=== PATIENT | female | born 1960 | race Two or more races ===

== ENCOUNTER 2017-06-02 04:44 | Emergency (ER) | payer MEDICARE ==
[~2017-06-02] VITALS: Ht 162.6 cm; Wt 97.1 kg
[2017-06-02] MEDS ORDERED: IV NS 0.9% 500 ML BAG IV ONE ×2 (05:00→06:00)
--- NOTE | 2017-06-02 05:09 | NUR ---
PT [facility]K WYNN FROM HOME PER PT "I WAS USING THE RESTROOM AND JUST FELL OFF, BUT I DID NOT HIT MY HEAD" NO C/O PAIN PT A/O X 4, BREATHING EVEN/UNLABORED, SKIN WARM/DRY/INTACT, PT STATES "I JUST FEEL DIZZY"
[2017-06-02 05:16] LABS: CALCIUM, SERUM 9.5 mg/dL (8.5-10.1); CARBON DIOXIDE 25 mmol/L (21-32); CHLORIDE 104 mmol/L (98-107); CREATININE 1.4 mg/dL (0.6-1.3); GLUCOSE 166 mg/dL (74-106); POTASSIUM 4.7 mmol/L (3.5-5.1); SODIUM SERUM 138 mmol/L (136-145); UREA NITROGEN, BLOOD 24 mg/dL (7-18)
[2017-06-02 05:21] LABS: BASOPHILS % (AUTO) 0.6 % (0.0-2.0); EOSINOPHILS # (AUTO) 0.4 /CMM (0.0-0.7); EOSINOPHILS % (AUTO) 6.4 % (0.0-6.0); HEMATOCRIT 38 % (33-45); HEMOGLOBIN 12.5 g/dL (11.5-14.8); LYMPHOCYTES # (AUTO) 1.5 /CMM (0.8-4.8); LYMPHOCYTES % (AUTO) 22.3 % (20.0-44.0); MEAN CORPUSCULAR HEMOGLOBIN 27 PG (26.0-33.0); MEAN CORPUSCULAR HGB CONC 33 g/dl (31.0-36.0); MEAN CORPUSCULAR VOLUME 83 fL (82-100); MONOCYTES # (AUTO) 0.4 /CMM (0.1-1.30); MONOCYTES % (AUTO) 6.4 % (2.0-12.0); NEUTROPHILS # (AUTO) 4.4 /CMM (1.8-8.9); NEUTROPHILS % (AUTO) 64.3 % (43.0-81.0); PLATELET COUNT (AUTO) 396 /CMM (150-450); RDW COEFFICIENT OF VARIATION 14.4 (11.5-15.0); RED BLOOD CELL COUNT(AUTO) 4.62 MIL/uL (4.0-5.2); WHITE BLOOD COUNT (AUTO) 6.8 K/uL (4.3-11.0)
[2017-06-02 05:22] LABS: ALANINE AMINOTRANSFERASE 11 U/L (12-78); ALBUMIN 3.5 g/dL (3.4-5.0); ALKALINE PHOSPHATASE 105 U/L (46-116); ASPARTATE AMINOTRANSFERASE 12 U/L (15-37); BILIRUBIN,DIRECT 0.1 mg/dL (0.0-0.2); BILIRUBIN,TOTAL 0.4 mg/dL (0.2-1.0); TOTAL PROTEIN, SERUM 7.8 g/dL (6.4-8.2)
[2017-06-02 05:24] LABS: TROPONIN I < 0.017 ng/mL (0.00-0.056)
--- NOTE | 2017-06-02 07:08 | NUR ---
PT SLEEPING, BREATHING LOUDLY, AROUSED EASILY TO VOICE, SYMMETRICAL CHEST RISE/FALL, NO C/O PAIN PT CALLING FRIEND FOR P/U
[2017-06-02 07:30] VITALS: BP 122/76
== END 2017-06-02 07:31 | disposition home or self-care (01) ==
LOC: ER 04:51
DX: E86.0 Dehydration (principal); E11.9 Type 2 diabetes mellitus without complications; G20 Parkinson's disease
CPT/HCPCS: 36415; 70450-TC; 71010-TC; 80048-TC; 80076-TC; 82962-TC; 84484-TC; 85025-TC; A4606; J7040; Z7610

== ENCOUNTER 2017-06-07 07:46 | Emergency (ER) | payer MEDICARE ==
[~2017-06-07] VITALS: Ht 154.9 cm; Wt 97.1 kg
--- NOTE | 2017-06-07 07:46 | NUR ---
BLE PAIN; STARTED LAST NIGHT, 04/17, ACHING-TICKLISH LIKE SENSATION. HX RLE DVT PER REPORT
[2017-06-07] MEDS ORDERED: IV NS 0.9% 500 ML BAG IV ONE (08:00)
[2017-06-07] MEDS ORDERED: MORPHINE SULFATE INJ 2 MG/ML DISP.SYRIN IV ONE (08:00)
[2017-06-07] MEDS ORDERED: ONDANSETRON HCL/PF 4 MG/2 ML VIAL IVP ONE (08:00)
[2017-06-07] MEDS ORDERED: ONDANSETRON HCL/PF 4 MG/2 ML VIAL ONE (08:03)
[2017-06-07] MEDS ORDERED: MORPHINE SULFATE INJ 10 MG/ML DISP.SYRIN ONE (08:04)
[2017-06-07 08:11] LABS: EOSINOPHILS # (AUTO) 0.3 /CMM (0.0-0.7); EOSINOPHILS % (AUTO) 5.9 % (0.0-6.0); HEMATOCRIT 36 % (33-45); HEMOGLOBIN 11.9 g/dL (11.5-14.8); LYMPHOCYTES # (AUTO) 1.1 /CMM (0.8-4.8); LYMPHOCYTES % (AUTO) 21.7 % (20.0-44.0); MEAN CORPUSCULAR HEMOGLOBIN 27 PG (26.0-33.0); MEAN CORPUSCULAR HGB CONC 33 g/dl (31.0-36.0); MEAN CORPUSCULAR VOLUME 82 fL (82-100); MONOCYTES # (AUTO) 0.3 /CMM (0.1-1.30); MONOCYTES % (AUTO) 5.9 % (2.0-12.0); NEUTROPHILS # (AUTO) 3.3 /CMM (1.8-8.9); NEUTROPHILS % (AUTO) 65.5 % (43.0-81.0); PLATELET COUNT (AUTO) 366 /CMM (150-450); RDW COEFFICIENT OF VARIATION 14.8 (11.5-15.0); RED BLOOD CELL COUNT(AUTO) 4.36 MIL/uL (4.0-5.2); WHITE BLOOD COUNT (AUTO) 5.1 K/uL (4.3-11.0)
--- NOTE | 2017-06-07 08:14 | NUR ---
LAC #20 IV ACCESS BLOOD SAMPLE COLLECTED SENT TO LAB
[2017-06-07 08:20] LABS: CALCIUM, SERUM 9.1 mg/dL (8.5-10.1); CREATININE 0.8 mg/dL (0.6-1.3); POTASSIUM 4.1 mmol/L (3.5-5.1)
--- NOTE | 2017-06-07 08:20 | NUR ---
SPLICER HELPER AT BEDSIDE
[2017-06-07 08:38] LABS: PROTHROMBIN TIME 59.6 SECS (9.5-12.7)
--- NOTE | 2017-06-07 08:39 | NUR ---
AIRPORT GUIDE AT BEDSIDE
[2017-06-07 08:40] LABS: INR 5.63 (0.87-1.13)
--- NOTE | 2017-06-07 09:53 | NUR ---
Patient discharged to home in stable condition. Written and verbal after care instructions given. Patient verbalizes understanding of instruction.
--- NOTE | 2017-06-07 09:53 | NUR ---
IV removed. Catheter intact and site benign. Pressure and 4x4 applied to site. No bleeding noted.
[2017-06-07 10:10] VITALS: BP 110/75
== END 2017-06-07 10:30 | disposition home or self-care (01) ==
LOC: ER 07:48
DX: M79.604 Pain in right leg (principal); M79.605 Pain in left leg; E11.40 Type 2 diabetes mellitus with diabetic neuropathy, unspecified; E66.01 Morbid (severe) obesity due to excess calories; G20 Parkinson's disease; R79.1 Abnormal coagulation profile; Z79.01 Long term (current) use of anticoagulants; Z86.718 Personal history of other venous thrombosis and embolism
CPT/HCPCS: 36415; 73590; 80048; 82550; 85025; 85730; 93970; 96374; 96375; 99285; A4606; J2270; J2405; J7040; Z7610

== ENCOUNTER 2017-06-09 00:18 | Emergency (ER) | payer MEDICARE ==
[~2017-06-09] VITALS: Ht 154.9 cm; Wt 97.5 kg
[2017-06-09] MEDS ORDERED: HYDROCODONE/APAP 5/325MG 1 EACH TABLET PO ONE (00:30)
--- NOTE | 2017-06-09 00:32 | NUR ---
PT BIBRA FROM HOME PT C/O NECK AND BACK PAIN S/P FALLING OFF BED. PT AOX3 RR EVEN AND UNLABORED. NO SOB NOTED. NAD NOTED. NO NVD. PT GOWNED AND PLACED ON MONITOR WAITING FOR MD DOTY. PT PLACED ON CERVICAL COLLAR PER MD ORDER.
--- NOTE | 2017-06-09 00:32 | NUR ---
Scott dean in [facility] - 06/09/17 at [address] PT [address]
--- NOTE | 2017-06-09 00:39 | NUR ---
PT TO CT.
[2017-06-09] MEDS ORDERED: HYDROCODONE/APAP 5/325MG 1 EACH TABLET ONE (00:42)
--- NOTE | 2017-06-09 00:59 | NUR ---
PT RETURNED FROM CT.
[2017-06-09 03:31] VITALS: BP 120/78
--- NOTE | 2017-06-09 03:31 | NUR ---
Patient discharged to home in stable condition. Written and verbal after care instructions given. Patient verbalizes understanding of instruction. ambulatory with a steady gait. instructed not to drive. pt verbalize understanding.
== END 2017-06-09 03:32 | disposition home or self-care (01) ==
LOC: ER 00:20
DX: S13.4XXA Sprain of ligaments of cervical spine, initial encounter (principal); S39.012A Strain of muscle, fascia and tendon of lower back, initial encounter; R51 Headache; E11.9 Type 2 diabetes mellitus without complications; G20 Parkinson's disease; Z86.718 Personal history of other venous thrombosis and embolism; W06.XXXA Fall from bed, initial encounter; Y93.89 Activity, other specified; Y92.89 Other specified places as the place of occurrence of the external cause; Y99.9 Unspecified external cause status
CPT/HCPCS: 70450; 72125; 72131; 99284; A4606; L0172; Z7610

== ENCOUNTER 2017-06-11 21:43 | Emergency (ER) | payer MEDICARE ==
[~2017-06-11] VITALS: Ht 152.4 cm; Wt 111.1 kg
--- NOTE | 2017-06-11 22:11 | NUR ---
PT WHEELED TO ER BED 10. C/O CONSTIPATION AND ANURIA X 4 DAYS NOW. PT DENIES ABDOMINAL PAIN. L EYE BRUISING NOTED FROM A RECENT FALL LAST NIGHT. GOWNED AND PLACED ON MONITOR. NAD NOTED. AWAITING MD DOTY.
--- NOTE | 2017-06-11 22:32 | NUR ---
DR BRANHAM AT BEDSIDE FOR EVAL.
--- NOTE | 2017-06-11 22:40 | NUR ---
IV LINE STARTED BLOOD DRAWN AND SENT TO LAB.
[2017-06-11 22:47] LABS: BASOPHILS # (AUTO) 0.1 /CMM (0.0-0.2); BASOPHILS % (AUTO) 1.1 % (0.0-2.0); EOSINOPHILS # (AUTO) 0.4 /CMM (0.0-0.7); EOSINOPHILS % (AUTO) 6.6 % (0.0-6.0); HEMATOCRIT 32 % (33-45); HEMOGLOBIN 10.5 g/dL (11.5-14.8); LYMPHOCYTES # (AUTO) 1.7 /CMM (0.8-4.8); LYMPHOCYTES % (AUTO) 28.2 % (20.0-44.0); MEAN CORPUSCULAR HEMOGLOBIN 27 PG (26.0-33.0); MEAN CORPUSCULAR HGB CONC 33 g/dl (31.0-36.0); MEAN CORPUSCULAR VOLUME 82 fL (82-100); MONOCYTES # (AUTO) 0.5 /CMM (0.1-1.30); MONOCYTES % (AUTO) 7.8 % (2.0-12.0); NEUTROPHILS # (AUTO) 3.3 /CMM (1.8-8.9); NEUTROPHILS % (AUTO) 56.3 % (43.0-81.0); PLATELET COUNT (AUTO) 369 /CMM (150-450); RDW COEFFICIENT OF VARIATION 14.9 (11.5-15.0); RED BLOOD CELL COUNT(AUTO) 3.87 MIL/uL (4.0-5.2); WHITE BLOOD COUNT (AUTO) 5.9 K/uL (4.3-11.0)
[2017-06-11 22:57] LABS: CREATININE 1.1 mg/dL (0.6-1.3); POTASSIUM 4.9 mmol/L (3.5-5.1)
[2017-06-11] MEDS ORDERED: IV NS 0.9% 500 ML BAG IV ONE (23:00)
[2017-06-11 23:01] LABS: INR 2.09 (0.87-1.13); PROTHROMBIN TIME 21.9 SECS (9.5-12.7)
[2017-06-11 23:03] LABS: ALBUMIN 3.1 g/dL (3.4-5.0); BILIRUBIN,DIRECT 0.1 mg/dL (0.0-0.2); BILIRUBIN,TOTAL 0.3 mg/dL (0.2-1.0); TOTAL PROTEIN, SERUM 7.2 g/dL (6.4-8.2)
[2017-06-11 23:25] LABS: APPEARANCE,URINE CLEAR (CLEAR); BILIRUBIN,URINE NEGATIVE (NEGATIVE); BLOOD, URINE NEGATIVE Ery/uL (NEGATIVE); COLOR,URINE YELLOW (YELLOW); KETONES,URINE TRACE (NEGATIVE); LEUKOCYTE ESTERASE ,URINE 1+ (NEGATIVE); NITRITE, URINE NEGATIVE (NEGATIVE); PH,URINE 5.5 (5.0-8.0); PROTEIN,URINE NEGATIVE (NEGATIVE); UGLUCOSE NEGATIVE (NEGATIVE); UROBILINOGEN,URINE 0.2 EU/dL (0.2)
[2017-06-11 23:28] LABS: RBC,URINE NONE SEEN /HPF (0-2)
[2017-06-11 23:29] LABS: BACTERIA,URINE Few /HPF (None Seen); SQUAMOUS EPITHELIAL CELL,UR Few /HPF (None Seen)
--- NOTE | 2017-06-11 23:37 | NUR ---
REPORT TO CHARGE NURSE RAHUL FOR LEELA.
[2017-06-12] MEDS ORDERED: NITROFURANTOIN/NITROFURAN MAC 100 MG CAPSULE PO ONE
[2017-06-12] MEDS ORDERED: NITROFURANTOIN/NITROFURAN MAC 100 MG CAPSULE ONE (00:33)
[2017-06-12] MEDS ORDERED: ACETAMINOPHEN 325 MG TABLET ONE (00:33)
--- NOTE | 2017-06-12 00:36 | NUR ---
PT OK TO DISCHARGE PER DR BRANHAM. Patient discharged to home in stable condition. Written and verbal after care instructions given. Patient verbalizes understanding of instruction.
[2017-06-12 00:37] VITALS: BP 128/65
[2017-06-12] MEDS ORDERED: ACETAMINOPHEN 325 MG TABLET PO ONE (01:00)
== END 2017-06-12 00:39 | disposition home or self-care (01) ==
LOC: ER 21:44
DX: S09.8XXA Other specified injuries of head, initial encounter (principal); N30.90 Cystitis, unspecified without hematuria; G20 Parkinson's disease; E11.9 Type 2 diabetes mellitus without complications; R79.1 Abnormal coagulation profile; Z86.718 Personal history of other venous thrombosis and embolism; W18.00XA Striking against unspecified object with subsequent fall, initial encounter; Y93.89 Activity, other specified; Y92.89 Other specified places as the place of occurrence of the external cause; Y99.8 Other external cause status
CPT/HCPCS: 36415; 51702; 70450; 80048; 80076; 81001; 82962; 85025; 85730; 87077; 87086; 87186; 99285; A4606; 81000-TC; Z7610